=== PATIENT | female | born 1995 | race Caucasian/White ===

== ENCOUNTER 2016-09-03 13:05 | Emergency (ER) | payer MEDICAID ==
[~2016-09-03] VITALS: Ht 157.5 cm; Wt 41.5 kg
[2016-09-03 15:47] VITALS: BP 128/84
== END 2016-09-03 16:20 | disposition home or self-care (01) ==
LOC: ED 13:05
DX: B34.9 Viral infection, unspecified (principal)
CPT/HCPCS: J7613; J7644

== ENCOUNTER 2016-09-29 19:39 | Emergency (ER) | payer MEDICAID ==
[2016-09-29 21:26] VITALS: BP 130/91
== END 2016-09-29 21:26 | disposition home or self-care (01) ==
LOC: ED 19:39
DX: J04.0 Acute laryngitis (principal)

== ENCOUNTER 2018-06-19 17:05 | Emergency (ER) | payer MEDICAID ==
[~2018-06-19] VITALS: Ht 157.5 cm; Wt 44.0 kg
[2018-06-19 17:17] VITALS: Ht 157.5 cm; Wt 44.0 kg
[2018-06-19 18:26] LABS: BASOPHIL % 0.2 % (0-2); PLATELET COUNT 242 x10^3mcL (130-400); RED CELL DISTRIBUTION WIDTH 13.3 % (11.5-14.5)
[2018-06-19 19:29] LABS: CALCIUM 7.6 mg/dL (8.5-10.1); CARBON DIOXIDE 22.7 mmol/L (21-32); CHLORIDE SERUM 107 mmol/L (98-107); CREATININE SERUM 0.6 mg/dL (0.6-1.0); GFR1 > 60 mL/min; GLUCOSE SERUM 85 mg/dL (74-106); POTASSIUM SERUM 4.1 mmol/L (3.5-5.1); SODIUM SERUM 139 mmol/L (136-145)
[2018-06-19 19:41] LABS: ALKALINE PHOSPHATASE 52 U/L (46-116); ALT/SGPT 16 U/L (14-59); AST/SGOT 16 U/L (15-37); BILIRUBIN TOTAL 0.25 mg/dL (0.20-1.00); TOTAL PROTEIN, SERUM 6.6 g/dL (6.4-8.2)
[2018-06-19 19:42] LABS: ALBUMIN 3.2 g/dL (3.4-5.0)
[2018-06-19 19:47] VITALS: BP 110/65
== END 2018-06-19 19:48 | disposition home or self-care (01) ==
LOC: ED 17:05
PROVIDERS: Emergency Medicine
DX: R55 Syncope and collapse (principal); S09.8XXA Other specified injuries of head, initial encounter; W18.11XA Fall from or off toilet without subsequent striking against object, initial encounter; Y93.89 Activity, other specified; Y92.89 Other specified places as the place of occurrence of the external cause; Y99.8 Other external cause status
CPT/HCPCS: J7030